=== PATIENT | male | born 1995 | race Two or more races ===

== ENCOUNTER 2018-10-09 02:03 | Emergency (ER) | payer OTHER ==
[2018-10-09 02:10] VITALS: BP 132/94
--- NOTE | 2018-10-09 02:15 | ER Report ---
History and Physical Time Seen By MD: 02:14 HPI/ROS CHIEF COMPLAINT: cut hand with knife. HISTORY OF PRESENT ILLNESS: This is a 23 year old male. Accidentally cut his right ring finger with a knife tonight. Middle phalanx palmar side. Normal movement and sensation. Unsure last tetanus. Allergies: Coded Allergies: No Known Drug Allergies (Unverified , 10/09/18) Home Meds Active Scripts Cephalexin Monohydrate (CEPHALEXIN) 500 Mg Cap, 500 MG PO Q6H, #20 CAP 0 Refills Prov:ARNAUD ABREU MD 10/09/18 Reviewed Nurses Notes: Yes Hx Substance Use Disorder: No Hx Alcohol Use: No Constitutional Vital Sign - Last 24 Hours 10/09/18 10/09/18 10/09/18 10/09/18 02:08 02:10 02:18 02:33 Temp 98.1 Pulse 119 73 75 Resp 16 B/P (MAP) 132/94 (107) 132/94 Pulse Ox 91 91 90 O2 Delivery Room Air 10/09/18 02:48 Pulse 75 Pulse Ox 91 Physical Exam General: Alert, no distress. Skin: about 3cm laceration middle phalanx palmar side, right 4th finger. Patient is right hand dominant. Musculoskeletal: Normal resisted flexion and extension, no tendon compromise. Neuro: normal sensation. Cardio: Normal capillary refill. Medical Decision Making ED Course/Re-evaluation ED Course Procedure: Laceration Repair Verbal consent from patient after discussing repair options, risks and benefits. Wound cleaned extensively with Hibiclens and saline. Anesthesia: Digital block with 1% lidocaine without epinephrine. Location: Right fourth finger. Length: 3 cm. Character: Into subcutaneous tissue. There were no deep structures involved. No tendon injury was identified. Wound repair: 6 interrupted 4-0 Prolene sutures. The wound repair was simple and performed by myself. Wound care instructions discussed. Sutures need to be removed in 7 days. Tetanus booster given. Cephalexin 500mg four times a day for 5 days. Decision to Disposition Date: Oct 09, 2018 Decision to Disposition Time: 02:41 Depart Departure Latest Vital Signs Vital Signs Date Time Temp Pulse Resp B/P (MAP) Pulse Ox O2 Delivery O2 Flow Rate FiO2 10/09/18 02:48 75 91 10/09/18 02:10 98.1 16 132/94 Room Air Impression: Primary Impression: Finger laceration Condition: Improved Disposition: HOME OR SELF-CARE New Scripts Cephalexin Monohydrate (CEPHALEXIN) 500 Mg Cap 500 MG PO Q6H, #20 CAP 0 Refills Prov: ARNAUD ABREU MD 10/09/18 Patient Instructions: Finger Laceration (ED) Additional Instructions: Wound Care: Wash the wound once a day with soap and water. Dry the wound and apply a small amount of antibiotic ointment with a clean dressing. If the dressing becomes wet or dirty, repeat cleaning and dressing as above. No soaking the wound; no swimming. Stitches need to be removed in 7 days. Pain Control: Use Tylenol or ibuprofen for pain. Using and ice pack can help reduce swelling. Antibiotic: Cephalexin 500mg 4 times a day for 5 days. Problem Qualifiers Primary Impression: Finger laceration Encounter type: initial encounter Finger: ring finger Damage to nail status: without damage Foreign body presence: without foreign body Laterality: right Qualified Codes: S61.214A - Laceration without foreign body of right ring finger without damage to nail, initial encounter ARNAUD ABREU MD Oct 09, 2018 02:15
[2018-10-09] MEDS ORDERED: CEPH500C24 PO (02:43)
[2018-10-09] MEDS ORDERED: CEPHALEXIN MONO 500 MG CAP PO ONE (02:45)
[2018-10-09] MEDS ORDERED: DIPHTH/TETANUS/ACEL. PERTUSSIS IM ONLY ONE (02:45)
== END 2018-10-09 02:54 | disposition home or self-care (01) ==
LOC: ER 02:31
DX: S61.214A Laceration without foreign body of right ring finger without damage to nail, initial encounter (principal)
CPT/HCPCS: 90471; 90715; 99283